=== PATIENT | female | born 1995 ===

== ENCOUNTER 2017-04-22 12:56 | Inpatient (IN) | payer OTHER, SELFPAY ==
[2017-04-22 13:23] LABS: INR-International Normal Ratio 1.2; PTT 20.1 SEC (22.9-36.1); Prothrombin Time 14.9 SEC (12.0-14.7)
[2017-04-22 13:24] LABS: Hemoglobin 3.8 g/dL (12.0-16.0); Mean Corpuscular HGB CONC 34.8 g/dL (32.0-36.0); Mean Corpuscular Hemoglobin 31.4 pg (27.0-31.0); Mean Corpuscular Volume 90.1 fl (81.0-99.0); Mean Platelet Volume 6.1 fL (7.4-10.4); Platelet Count 287 thou/uL (130-400); Red Blood Cell (RBC) Count 1.22 mill/uL (4.20-5.40); White Blood Cell (WBC) Count 18.3 thou/uL (4.8-10.8)
[2017-04-22 13:30] LABS: BHCG - Serum Negative (NEGATIVE); Pregs Control Background? CLEAR/WHITE (CLR/WHITE); Pregs Control Bar Appear? YES (CONTROL BAR)
[2017-04-22 13:40] LABS: ALT (SGPT) Less than 7 U/L (8-55); AST (SGOT) 11 U/L (5-34); Albumin 2.9 g/dL (3.5-5.0); Alkaline Phosphatase 34 U/L (40-150); Anion Gap 11 mmol/L (10-20); BUN (Urea Nitrogen) 23 mg/dL (7.0-18.7); Bilirubin, Total 0.5 mg/dL (0.2-1.2); CK (CPK) 16 U/L (29-168); Calc. Creatinine Clearance 0 mL/min (70-130); Calcium 7.9 mg/dL (7.8-10.44); Carbon Dioxide 24 mmol/L (22-29); Chloride 103 mmol/L (98-107); Estimated GFR-MDRD Greater than 90; Globulin 1.2 g/dL (2.4-3.5); Glucose 140 mg/dL (70-105); Lipase 38 U/L (8-78); Magnesium 1.4 mg/dL (1.6-2.6); Potassium 3.6 mmol/L (3.5-5.1); Protein, Total 4.1 g/dL (6.0-8.3); Sodium 134 mmol/L (136-145)
[2017-04-22 13:50] LABS: #Basophils 0.1 thou/uL (0.0-0.2); #Lymphocytes 2.4 thou/uL (1.20-3.40); #Monocytes 0.6 thou/uL (0.11-0.59); #Neutrophils 15.2 thou/uL (1.40-6.50); %Basophils 0.4 % (0.0-1.0); %Eosinophils 0.1 % (0.0-10.0); %Lymphocytes 13.2 % (21.0-51.0); %Monocytes 3.3 % (0.0-10.0); Anisocytosis SLIGHT = 6-15 cells (100X) (0-5/hpf); MDiff Complete? YES; PLT Morphology Comment Appears Adequate
[2017-04-22 14:11] LABS: Iron 15 ug/dL (50-170); Iron Binding Capacity, Total 229 mcg/dL (265-497)
[2017-04-22 14:48] LABS: Ferritin 3.08 ng/mL (10-291)
[2017-04-22 16:15] LABS: Bilirubin Negative (Negative); Blood, Urine Negative (Negative); Clarity CLEAR (Clear); Glucose, Urine (Dipstick) Negative (Negative); Leukocyte Negative (Negative); Nitrite Negative (Negative); Protein, Urine (Dipstick) Negative (Neg-Trace); Specific Gravity, Urine 1.011 (1.002-1.036); Urobilinogen 0.2 mg/dL (0.2-1.0); pH, Urine 6.5 (5.0-9.0)
[2017-04-22] MEDS ORDERED: Fentanyl 250 MCG/5 ML VIAL ONE (16:26)
[2017-04-22] MEDS ORDERED: Propofol 200 MG/20 ML VIAL ONE (16:33)
[2017-04-22] MEDS ORDERED: Lidocaine 1% PF 5 ML VIAL ONE (16:33)
[2017-04-22] MEDS ORDERED: Succinylcholine Chloride 20 MG/ML 10 ml SYRINGE FS ONE (16:33)
[2017-04-22] MEDS ORDERED: Ondansetron HCl/PF 4 MG/2 ML Vial ONE (18:03)
[2017-04-22] MEDS ORDERED: Promethazine HCl 25 MG/ML VIAL SLOW IVP PRN (18:03)
[2017-04-22] MEDS ORDERED: Promethazine HCl 25 MG/ML VIAL IM PRN (18:03)
[2017-04-22] MEDS ORDERED: Ondansetron HCl/PF 4 MG/2 ML Vial IVP PRN (18:03)
[2017-04-22 18:48] LABS: Hemoglobin 8.1 g/dL (12.0-16.0)
--- NOTE | 2017-04-22 18:52 | OP ---
DATE OF PROCEDURE: 04/22/2017 PROCEDURES PERFORMED: Esophagogastroduodenoscopy with balloon dilation of the pyloric stricture. OPERATIVE NOTE: Informed consent was obtained from the patient. She was sedated with general anesth esia. The therapeutic endoscope was advanced to the esophagus, which was normal. The GE junction wa s normal. The stomach had staining of old black blood, but the mucosa was normal. The pylorus was s trictured and there was too tight to pass the endoscope through. A 12 mm pyloric dilation balloon wa s passed through the stricture and the stricture was dilated up to 12 mm. This allowed passage of th e endoscope through the stricture. The bulb of the duodenum was normal. The second portion of the d uodenum was normal. Biopsies were taken from the duodenum to rule out celiac disease. There was glory e oozing from the dilation site. There was a shallow ulcer in the inferior part of the pylorus. Thi s measured around 10 mm. Biopsies were obtained from the stomach to rule out H. pylori. IMPRESSION: 1. Pyloric stenosis, too tight to pass the endoscope through. This was dilated to 12 mm with a pylo jade balloon dilator. This allowed passage of the scope through the pylorus. There was a 10 mm ulcer in the inferior portion of the pyloric channel without stigmata of recent bleeding. There was stain ing of old black blood in the stomach and the first part of the duodenum. 2. EGD was otherwise normal. 3. She likely has had gradual blood loss over a period of months. 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 RECOMMENDATIONS: 1. Transfuse. She has been given three units now. We will check a posttransfusion hemoglobin. 2. Proton pump inhibitor IV. This should be able to be changed to oral proton pump inhibitor tomorr ow. 3. Low residue diet. 4. Oral iron supplementation. If she fails to return to normal hemoglobin with this, then she might eventually require iron IV. 5. Repeat EGD in 2-4 weeks to reevaluate the ulcer and dilate the pyloric stricture further. 6. Await pathology results.
--- NOTE | 2017-04-22 18:53 | CON ---
DATE OF CONSULTATION: 04/22/2017 CHIEF COMPLAINT: Severe weakness. HISTORY OF PRESENT ILLNESS: Ms. Butler is a 22-year-old woman who has felt bad in general over the las t couple of months, but over the last week, has been acutely weak and on Thursday, she developed shortn ess of breath when trying to walk up flight of stairs. She went home and either passed out or fell a sleep. She then woke up and vomited on herself some black looking material. She just stayed in bed over the next couple of days until her friends ultimately went to check on her today and brought her into the emergency room for further care due to severe weakness and lightheadedness. She has had michael und 1 bowel movement per day, which has been dark at times, but she has not looked at it in detail. She has had some epigastric bloating and she vomited on Thursday as stated above. She has not seen any red blood in her stool or large volume black stools. She has had heavy menstrual periods. Her mens trual cycle will go on for a week or so at a time and has been heavy the first several days. She was diagnosed with a gastric ulcer when she was in high school. She required multiple upper endoscopies with balloon dilation of pyloric stricture. She was diagnosed with H. pylori at some point and lynda khan for that. She has not been on proton pump inhibitor for the last few years. She has not been ta shala NSAIDs other than yesterday she had a bad headache and took Excedrin for migraine. Other than t hat, she has only taken some Tylenol a few times over the last couple of months. PAST MEDICAL HISTORY: Pyloric ulcer, pyloric stenosis requiring dilation in the past, TMJ disorder, ADHD. PAST SURGICAL HISTORY: Tonsils and adenoids, multiple upper endoscopies with dilation and tubes plac ed for eardrums as a child. FAMILY HISTORY: Positive for breast cancer in her grandmother. SOCIAL HISTORY: She drinks some alcohol occasionally, socially on the weekends in the past, but real bernarda has not had anything over the last couple of months since she has been feeling so poorly. No smok ing, no drugs. 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 ALLERGIES: CECLOR and BACTRIM. REVIEW OF SYSTEMS: Negative x10 systems reviewed except as stated in history of present illness. PHYSICAL EXAMINATION: VITAL SIGNS: On presentation to the ER, blood pressure was 105/52 with a pulse of 110, and she is af ebrile. She has received 3 units of blood. Her pulse is now 103 with a blood pressure of 90/56 in p ostanesthesia unit. GENERAL: She is extremely pale. HEENT: Eyes have no scleral icterus. Oropharynx is clear, without lesions. LUNGS: Clear to auscultation bilaterally. HEART: Regular rate and rhythm. NECK: She has no cervical or supraclavicular lymphadenopathy. ABDOMEN: Soft, nontender, nondistended. Bowel sounds are present. EXTREMITIES: No lower extremity edema. LABORATORY DATA: White blood cell count 18.3, hemoglobin 3.8, platelets 287. INR 1.2, creatinine 0. 75, iron 15, TIBC 229, ferritin 3.08, bilirubin 0.5, AST 11, ALT 7, alkaline phosphatase 34, albumin 2.9, lipase 38. Serum test was negative. IMPRESSION: Severe iron deficiency anemia. She likely has had chronic blood loss from the GI tract and also with heavy menstrual loss as well. 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 Rectal exam now reveals only flecks of black stool. RECOMMENDATIONS: 1. Proton pump inhibitor drip. 2. EGD. 3. Transfusion.
[2017-04-22 19:04] LABS: Lactic Acid 1.5 mmol/L (0.5-2.2)
--- NOTE | 2017-04-22 19:15 | PDOC.FPRHP ---
- History of Present Illness Chief Complaint: Syncopal Episode History of Present Illness: 22 year old white female with a past medical history of pyloric stenosis, anxiety, depression, stomach ulcers, ADHD, and TMJ who presented to the ED after a syncopal episode. Today she was in the bathroom talking to her boyfriend and stopped talking. He checked on her and found her slumped against the wall. She woke up after 30 seconds and said she was fully awake and responsive by the time EMS arrived. She reports recent symptoms including fatigue, weakness, tachycardia with exertion, exertional dyspnea, headache, dark stools, and a single episode of vomiting she reports did look like coffee. Prior to Thursday she also had diarrhea and abdominal discomfort. ED Course: Seen by Dr. Souza. Transfused [address] Pino consulted by ED - Allergies/Adverse Reactions Allergies Allergy/AdvReac Type Severity Reaction Status Date / Time No Known Allergies Allergy Unverified 04/22/17 18:48 - Home Medications Medication Instructions Recorded Confirmed Type Citalopram [CeleXA] 20 mg PO DAILY 04/22/17 04/22/17 History Dextroamphetamine/Amphetamine 20 mg PO BID 04/22/17 04/22/17 History [Adderall] - History PMHx: PSHx: FHx: Social: - Review of Systems General: reports: fatigue. denies: fever/chills, weight/appetite/sleep changes , night sweats Eyes: denies: eye pain, vision changes ENT: denies: nasal congestion, rhinorrhea Respiratory: reports: shortness of breath. denies: cough, congestion Cardiovascular: reports: other (Exertional dyspnea). denies: chest pain Gastrointestinal: reports: nausea, vomiting, other (Dark stools). denies: diarrhea, constipation, abdominal pain, GI bleeding Genitourinary: denies: dysuria, polyuria Skin: denies: rashes, lesions Musculoskeletal: denies: pain, tenderness, stiffness, arthritis/arthralgias Neurological: reports: syncope. denies: numbness, seizure, weakness Psychological: denies: anxiety, depression - Vital signs BP: [] HR: [] RR: [] Tmax: [] Pox: []% on [] Wt: [] - Physical Exam Constitutional: NAD, awake, alert and oriented, well developed HEENT: normocephalic and atraumatic, conjunctiva clear, no scleral icterus, TM' s clear and intact, grossly normal hearing, MMM, oropharynx clear -HEENT: Oral mucosa pale Neck: supple, FROM, trachea midline, no LAD, no thyromegaly Chest: no-tender to palpation, no lesions Heart: normal S1/S2, no murmurs/rubs/gallops, pulses present, no edema ( Tachycardic. Regular rhythm) Lungs: CTAB, no respiratory distress, good air movement, no rales/rhonchi, no wheezing, no retractions Abdomen: soft, non-tender, bowel sounds present, no masses/distention Musculoskeletal: normal structure, normal tone, ROM grossly normal Neurological: no focal deficit, CN II-XII intact, normal sensation, DTRs 2+ Skin: no rash/lesions, good turgor, capillary refill <2 seconds, no jaundice -Skin: Skin pale Heme/Lymphatic: no unusual bruising or bleeding, no purpura, no petechia, no LAD Psychiatric: normal mood and affect, good judgment and insight, intact recent and remote memory FMR H&P: Results - Labs Result Diagrams: 04/22/17 18:33 04/22/17 13:10 Lab results: WBC 18.3 thou/uL (4.8-10.8) H 04/22/17 13:10 Hgb 8.1 g/dL (12.0-16.0) L 04/22/17 18:33 Hct 23.9 % (36.0-47.0) L 04/22/17 18:33 MCV 90.1 fl (81.0-99.0) 04/22/17 13:10 Plt Count 287 thou/uL (130-400) 04/22/17 13:10 Neutrophils % 83.0 % (42.0-75.0) H 04/22/17 13:10 Sodium 134 mmol/L (136-145) L 04/22/17 13:10 Potassium 3.6 mmol/L (3.5-5.1) 04/22/17 13:10 Chloride 103 mmol/L (98-107) 04/22/17 13:10 Carbon Dioxide 24 mmol/L (22-29) 04/22/17 13:10 BUN 23 mg/dL (7.0-18.7) H 04/22/17 13:10 Creatinine 0.75 mg/dL (0.6-1.1) 04/22/17 13:10 Glucose 140 mg/dL (70-105) H 04/22/17 13:10 Lactic Acid 1.5 mmol/L (0.5-2.2) 04/22/17 18:33 Calcium 7.9 mg/dL (7.8-10.44) 04/22/17 13:10 Total Bilirubin 0.5 mg/dL (0.2-1.2) 04/22/17 13:10 AST 11 U/L (5-34) 04/22/17 13:10 ALT Less than 7 U/L (8-55) L 04/22/17 13:10 Alkaline Phosphatase 34 U/L (40-150) L 04/22/17 13:10 Creatine Kinase 16 U/L (29-168) L 04/22/17 13:10 Serum Total Protein 4.1 g/dL (6.0-8.3) L 04/22/17 13:10 Albumin 2.9 g/dL (3.5-5.0) L 04/22/17 13:10 Lipase 38 U/L (8-78) 04/22/17 13:10 Urine Ketones 15 mg/dL (Negative) H 04/22/17 15:48 Urine Blood Negative (Negative) 04/22/17 15:48 Urine Nitrite Negative (Negative) 04/22/17 15:48 Ur Leukocyte Esterase Negative (Negative) 04/22/17 15:48 FMR H&P: A/P - Problem List (1) Acute blood loss anemia Current Visit: Yes Status: Acute Priority: High Code(s): D62 - ACUTE POSTHEMORRHAGIC ANEMIA Assessment and Plan: Admit to IMCU - Suspect upper GI bleed as source - FOBT positive - Dr. Pino in GI consulted plans for EGD. Appreciate his recs - Continue iv Protonix - Patient given 3 units PRBC. Will recheck CBC after endoscopy (2) Hypotension Current Visit: Yes Status: Acute Priority: High Qualifiers: Hypotension type: unspecified hypotension type Qualified Code(s): I95.9 - Hypotension, unspecified Assessment and Plan: 03/27 #1. Will give blood (3) Tachycardia Current Visit: Yes Status: Acute Code(s): R00.0 - TACHYCARDIA, UNSPECIFIED Assessment and Plan: 2/2 #1. Likely 2/2 blood transfusion (4) Anxiety Current Visit: Yes Status: Chronic Priority: Low Code(s): F41.9 - ANXIETY DISORDER, UNSPECIFIED Assessment and Plan: Hold home meds (5) Depression Current Visit: Yes Status: Chronic Priority: Low Code(s): F32.9 - MAJOR DEPRESSIVE DISORDER, SINGLE EPISODE, UNSPECIFIED Qualifiers: Depression Type: unspecified Qualified Code(s): F32.9 - Major depressive disorder, single episode, unspecified Assessment and Plan: Hold home meds. Has only taken Citalopram once FMR H&P: Upper Level - Plan Date/Time: 04/22/171907 I, [], have evaluated this patient and agree with findings/plan as outlined by tax services intern resident. Pertinent changes/additions are listed here.
[2017-04-22] MEDS: Pantoprazole 40 MG VIAL IVP SCH (21:28)
[2017-04-22 22:44] VITALS: BMI 22.3
[2017-04-22] MEDS ORDERED: Acetaminophen 500 MG TAB PO SCH (23:30)
[2017-04-23 05:48] LABS: #Eosinphils 0.1 thou/uL (0.0-0.7); #Lymphocytes 3.1 thou/uL (1.20-3.40); #Monocytes 0.9 thou/uL (0.11-0.59); #Neutrophils 7.7 thou/uL (1.40-6.50); %Basophils 0.4 % (0.0-1.0); %Eosinophils 0.6 % (0.0-10.0); %Lymphocytes 26.6 % (21.0-51.0); %Monocytes 7.2 % (0.0-10.0); %Neutrophils 65.3 % (42.0-75.0); Hemoglobin 7.2 g/dL (12.0-16.0); Mean Corpuscular HGB CONC 33.8 g/dL (32.0-36.0); Mean Corpuscular Hemoglobin 30.1 pg (27.0-31.0); Mean Platelet Volume 6.6 fL (7.4-10.4); Platelet Count 198 thou/uL (130-400); RBC Distribution Width 13.3 % (11.5-14.5); Red Blood Cell (RBC) Count 2.39 mill/uL (4.20-5.40); White Blood Cell (WBC) Count 11.8 thou/uL (4.8-10.8)
[2017-04-23 06:15] LABS: Anion Gap 7 mmol/L (10-20); BUN (Urea Nitrogen) 14 mg/dL (7.0-18.7); Calc. Creatinine Clearance 115 mL/min (70-130); Carbon Dioxide 23 mmol/L (22-29); Chloride 110 mmol/L (98-107); Estimated GFR-MDRD Greater than 90; Glucose 90 mg/dL (70-105); Potassium 3.6 mmol/L (3.5-5.1); Sodium 136 mmol/L (136-145)
[2017-04-23] MEDS ORDERED: Magnesium 2 GM/NS 0.9% 100 ML 2 GM in Premix Bag 1 BAG IVPB SCH (06:45)
--- NOTE | 2017-04-23 06:48 | PDOC.FM ---
- Subjective Subjective: Pt seen at bedside in NAD. JAX overnight, notes she feels better. Still endorses orthostatic dizziness. Tolerating PO well. Denies CP, SOB, NVD, abd pain. - Objective MAR Reviewed: Yes Vital Signs & Weight: Vital Signs (12 hours) Temp Pulse Resp BP Pulse Ox 04/23/17 04:37 98.9 F 106 H 16 102/54 L 98 04/22/17 20:00 97.6 F 99 16 100 04/22/17 19:20 97.6 F 99 16 109/68 100 Weight Weight 59.012 kg Result Diagrams: 04/23/17 05:19 04/23/17 05:19 <Rahul Gallegos - Last Filed: 04/23/17 15:03> - Objective Vital Signs & Weight: Vital Signs (12 hours) Temp Pulse Resp BP Pulse Ox 04/23/17 04:37 98.9 F 106 H 16 102/54 L 98 Weight Weight 57.969 kg I&O: 04/22/17 04/23/17 04/24/17 06:59 06:59 06:59 Intake Total 500 Output Total 2049 Balance -1550 Result Diagrams: 04/23/17 05:19 04/23/17 05:19 <Alize Vivas - Last Filed: 04/23/17 15:14> Phys Exam - Physical Examination Constitutional: NAD HEENT: PERRLA oral pallor Neck: no nodes Respiratory: no wheezing, clear to auscultation bilateral Cardiovascular: RRR, no significant murmur Gastrointestinal: soft, non-tender Musculoskeletal: pulses present Neurological: moves all 4 limbs Psychiatric: normal affect, A&O x 3 <Rahul Gallegos - Last Filed: 04/23/17 15:03> Dx/Plan (1) Acute blood loss anemia Code(s): D62 - ACUTE POSTHEMORRHAGIC ANEMIA Status: Acute Plan: -pt presented for symptomatic anemia and found to have Hgb 3.8 -pt has hx of melena and menorrhagia and likely a chronic blood loss -iron studies reveal iron of 15 and ferritin of 3, would likely benefit from iron transfusion -pt has received 3 u pRBC thus far, will continue to monitor closely and consider additional transfusion -pt cross matched for 6 units -protonix BID (2) Pyloric stenosis in adult Code(s): K31.1 - ADULT HYPERTROPHIC PYLORIC STENOSIS Status: Acute Plan: -GI on board, recs greatly appreciated -EGD on 04/22 revealed severe pyloric stenosis, partially dilated -plans for repeat EGD in 2-4 weeks for further dilation (3) Tachycardia Code(s): R00.0 - TACHYCARDIA, UNSPECIFIED Status: Acute Plan: -likely secondary to anemia and anxiety -has improved with fluid and intravascular repletion (4) Anxiety Code(s): F41.9 - ANXIETY DISORDER, UNSPECIFIED Status: Chronic - Plan Plan: dispo: Pt stable and improving. Continue to monitor closely. Repeat H/H at 1600. GI recs greatly appreciated. <Rahul Gallegos - Last Filed: 04/23/17 15:03> Attending Addendum - Attending Addendum Date/Time: 04/23/17914 I personally evaluated the patient and discussed the management with Dr. Gallegos I agree with the History, Examination, Assessment and Plan documented above with any addition or exceptions noted below. Severe iron deficiency anemia secondary to upper GI bleed from duodenal ulcer and menorrhagia- s/p 3UPRBC. Will give iron infusion as patient and mother prefer this to oral. Serial H/H. Her symptoms of dizziness and shortness of breath are much improved this am. <Alize Vivas - Last Filed: 04/23/17 15:14>
[2017-04-23] MEDS ORDERED: Acetaminophen 500 MG TAB PO SCH (08:30)
[2017-04-23] MEDS ORDERED: FLU VACC QS2017-18 36 mo. & older 0.5 ML SYRINGE IM ONE (09:00)
[2017-04-23] MEDS ORDERED: Acetaminophen 1,000 MG in Premix Bag 1 BAG IVPB SCH (11:00)
[2017-04-23] MEDS: Pantoprazole 40 MG VIAL IVP SCH ×2 (11:22→21:53)
[2017-04-23] MEDS: Sodium Ferric Gluconate 250 MG, Admixture Fee 1 EACH in Sodium Chloride 0.9% 250 ML 250 ML IVPB SCH ×2 (12:21→21:53)
[2017-04-23 16:37] LABS: Hemoglobin 8.1 g/dL (12.0-16.0)
[2017-04-23 17:58] LABS: Base Excess-Venous -5.3 mmol/L (-30.0-30.0); Bicarbonate (HCO3v) 18.8 mmol/L (1.0-85.0); CO2 Tension (PvCO2) 27.7 mmHg (41.0-51.0); Lactate 2.51 mmol/L (0.50-2.20); O2 Tension (PvO2) 70.9 mmHg (35.0-45.0); Potassium 3.6 mmol/L (3.4-4.7); T. Carbon Dioxide 19.6 mmol/L (1.0-85.0); pH (Venous) 7.439 (7.35-7.45)
--- NOTE | 2017-04-23 19:12 | PRG ---
DATE OF SERVICE: 04/23/2017 SUBJECTIVE: Ms. Butler has had no bowel movement today. No overt bleeding. No abdominal pain or naus ea. She is tolerating the full liquids well and wants to advance her diet. PHYSICAL EXAMINATION: VITAL SIGNS: Temperature 98.9, pulse 106, blood pressure 102/54. GENERAL: She is in no acute distress. She is still pale. Awake and alert. LUNGS: Clear to auscultation bilaterally. HEART: Regular rate and rhythm, mildly tachycardic. ABDOMEN: Soft, nontender, nondistended. Bowel sounds are present. EXTREMITIES: No lower extremity edema. LABORATORY DATA: White blood cell count 11.8, hemoglobin 7.2, platelets 198, creatinine 0.71. IMPRESSION: 1. Acute on chronic gastrointestinal bleed related to pyloric channel ulcer. She has received 3 uni ts transfusion and is receiving IV iron today. Her hemoglobin improved from 3.8 to 7.2 with 3 units transfusion. She is still mildly symptomatic and her followup hemoglobin this afternoon remains clos e to 7 and we have given her another unit of blood. 2. Pyloric stenosis, status post dilation with balloon. RECOMMENDATIONS: 1. She has a repeat hemoglobin ordered for this afternoon. If it remains in the 7 range, then recom mendation is to transfuse a unit since she is still symptomatic. 2. IV iron. 3. Repeat EGD in 2-4 weeks. 4. She can likely discharged home tomorrow if she has no further overt bleeding and her hemoglobin r emains stable or responds appropriately to transfusion. 5. We will advance to a regular diet.
[2017-04-23 21:56] LABS: Lactic Acid 2.6 mmol/L (0.5-2.2)
--- NOTE | 2017-04-24 06:53 | PDOC.FM ---
- Subjective Subjective: Pt seen at bedside in NAD. Mother in room. JAX overnight. Pt notes she feels better. Pt notes some lightheadedness with quick movements. Pt denies CP, SOB, abd pain, NVD, bleeding. - Objective MAR Reviewed: Yes Vital Signs & Weight: Vital Signs (12 hours) Temp Pulse Resp BP Pulse Ox 04/24/17 03:57 98.3 F 80 18 100/53 L 97 04/23/17 20:00 98.6 F 93 18 106/60 99 Weight Weight 57.969 kg I&O: 04/22/17 04/23/17 04/24/17 06:59 06:59 06:59 Intake Total 500 1070 Output Total 2049 350 Balance -1550 720 Result Diagrams: 04/24/17 07:11 04/23/17 05:19 <Rahul Gallegos - Last Filed: 04/24/17 11:26> - Objective Vital Signs & Weight: Vital Signs (12 hours) Temp Pulse Resp BP Pulse Ox 04/24/17 10:30 98.2 F 18 98 04/24/17 10:15 98.1 F 18 100 04/24/17 08:00 98.1 F 92 18 99 04/24/17 07:25 98.6 F 92 18 105/56 L 99 04/24/17 03:57 98.3 F 80 18 100/53 L 97 Weight Weight 57.969 kg Most Recent Monitor Data Heart Rate from ECG 100 NIBP 94/54 I&O: 04/23/17 04/24/17 04/25/17 06:59 06:59 06:59 Intake Total 500 1820 0 Output Total 2049 350 Balance -1550 1470 0 Result Diagrams: 04/24/17 07:11 04/23/17 05:19 <Alize Vivas - Last Filed: 04/24/17 15:05> Phys Exam - Physical Examination Constitutional: NAD HEENT: moist MMs Respiratory: no wheezing, clear to auscultation bilateral Cardiovascular: RRR, no significant murmur Gastrointestinal: soft, non-tender Musculoskeletal: no edema Neurological: moves all 4 limbs Psychiatric: normal affect, A&O x 3 Skin: cap refill <2 seconds <Rahul Gallegos - Last Filed: 04/24/17 11:26> Dx/Plan (1) Acute blood loss anemia Code(s): D62 - ACUTE POSTHEMORRHAGIC ANEMIA Status: Acute Plan: -pt presented for symptomatic anemia and found to have Hgb 3.8 -pt has hx of melena and menorrhagia and likely a chronic blood loss -iron studies reveal iron of 15 and ferritin of 3, would likely benefit from iron transfusion -pt has received 3 u pRBC thus far, will continue to monitor closely and consider additional transfusion -pt cross matched for 6 units -protonix BID -Hgb 7.2 this AM, will transfuse 1 additional unit and recheck H/H (2) Pyloric stenosis in adult Code(s): K31.1 - ADULT HYPERTROPHIC PYLORIC STENOSIS Status: Acute Plan: -GI on board, recs greatly appreciated -EGD on 04/22 revealed severe pyloric stenosis, partially dilated -plans for repeat EGD in 2-4 weeks for further dilation (3) Tachycardia Code(s): R00.0 - TACHYCARDIA, UNSPECIFIED Status: Acute Plan: -likely secondary to anemia and anxiety -has improved with fluid and intravascular repletion (4) Anxiety Code(s): F41.9 - ANXIETY DISORDER, UNSPECIFIED Status: Chronic - Plan Plan: Disposition: Pt stable. GI recs greatly appreciated. Protonix transitioned to PO. Will transfuse 1 additional unit this AM and if H/H stable, will likely discharge this afternoon. Continue to monitor. <Rahul Gallegos - Last Filed: 04/24/17 11:26> Attending Addendum - Attending Addendum Date/Time: 04/24/17 0840 I personally evaluated the patient and discussed the management with Dr. Gallegos I agree with the History, Examination, Assessment and Plan documented above with any addition or exceptions noted below. Acute on chronic iron deficiency anemia secondary to blood loss- patient mildly symptomatic. Will transfuse one more unit and recheck h/h. If above 8 then stable for d/c with close outpatient follow-up. No recurrent bleeding. Pyloric stenosis- appreciate GI recs <Alize Vivas - Last Filed: 04/24/17 15:05>
[2017-04-24 07:44] LABS: Hemoglobin 7.5 g/dL (12.0-16.0)
[2017-04-24] MEDS: Pantoprazole 40 MG VIAL IVP SCH (09:43)
[2017-04-24 17:03] VITALS: BP 111/63; TEMP 98.7
[2017-04-24 17:10] LABS: Hemoglobin 10.2 g/dL (12.0-16.0)
--- NOTE | 2017-04-24 18:07 | PRG ---
DATE OF SERVICE: 04/24/2017 SUBJECTIVE: Ms. Batista is without complaints today. She feels much better. She is not dizzy on sta nding. She does not feel weak. She is eating well without stomach pain. She has had no melena, hem atochezia or hematemesis. MEDICATIONS: Protonix. OBJECTIVE: VITAL SIGNS: Temperature 97, pulse 18, blood pressure 112/56, 93/55, 105/56, respirations 18 and pul se 92. GENERAL: She is resting comfortably in bed. She is mildly pale. HEENT: Conjunctivae and sclerae are clear. LABORATORY STUDIES: Hemoglobin was 8.1 on 04/22, 7.2 yesterday, then 8.1 yesterday afternoon and 7.5 this morning. She received a unit of blood today and 3 units of blood on 04/22. ASSESSMENT: 1. Severe anemia with iron deficiency, but no microcytosis. On admission, she reported of some emes is, possibly coffee grounds, but no history of massive gastrointestinal bleeding on presentation. Sh layla has a history of heavy menstrual cycles with a remote history of ulcers and pyloric stenosis. No o ther report showed NSAID disease. This endoscopy showed small ulcer, chronic and pyloric stenosis wh ich was felt to be more of an issue with chronic gastrointestinal blood loss. She did receive iron i nfusion, which I think was a good idea. She is receiving 1 more unit of blood today. She was sympto matic yesterday. 2. Helicobacter pylori biopsy is negative. 3. Pyloric stenosis related to previous scarring, which was attributed to nonsteroidal anti-inflamma tory drugs with ulcers when she was a teenager. 4. Tachycardia, resolved. RECOMMENDATION: I think she can go home if her hemoglobin is stable with b.i.d. omeprazole. She pelaez s not have prescription drug coverage, so I think this will be the cheapest 40 mg twice a day. She g ot a number and we will see her back in the office in 1-2 weeks to recheck her blood count. She will need a follow up EGD in 4-6 weeks. If she is not having adequate improvement in hemoglobin, it woul d be reasonable to consider colonoscopy at that time as well.
--- NOTE | 2017-04-25 10:51 | DIS-2 ---
DATE OF ADMISSION: 04/22/2017 DATE OF DISCHARGE: 04/24/2017 RESIDENT: Rahul Gallegos M.D. ADMITTING ATTENDING: Edgar Aguiar M.D. DISCHARGE ATTENDING: Alize Vivas M.D. CONSULTS: Gastroenterology, Dr. Sravan Pino and Dr. Elijah Pacheco. PROCEDURES: 1. EGD performed on 04/22/2017 showed pyloric stenosis dilated with a balloon dilator, 10-mm ulcer o n the inferior portion of the pyloric channel without stigmata of recent bleeding; however, old blood in the stomach and duodenum. 2. Antral stomach biopsy showed no H. pylori organisms, negative metaplasia and chronic inactive gas tritis. 3. Duodenal biopsy showed no evidence of celiac sprue. PRIMARY DIAGNOSES: 1. Syncopal episode secondary to chronic upper gastrointestinal bleed due to pyloric ulceration. 2. Iron deficiency anemia secondary to above. DISCHARGE MEDICATIONS: 1. Omeprazole 40 mg p.o. b.i.d. 2. Ferrous sulfate 325 mg p.o. daily. 3. Citalopram 20 mg daily. 4. Adderall 20 mg p.o. b.i.d. HISTORY OF PRESENT ILLNESS AND HOSPITAL COURSE: The patient is a very pleasant 22-year-old female, who initially presented due to a syncopal episode. Upon initial workup, the patient was fou nd to have hemoglobin of 3.8 and required multiple blood transfusions, totaling of 4 units of packed red blood cells throughout her hospital stay. The patient had an urgent EGD performed as described sandra allen and it was thought that her symptomatic anemia was caused by a chronic bleeding ulcer and possib ly menorrhagia. The patient responded extremely well to her blood transfusions and she also received an IV iron transfusion while hospitalized. Of note, the patient's iron was 15 with a ferritin of 3. Prior to discharge, the patient's hemoglobin was 10.2. After the stabilization of the patient's he moglobin, it was deemed that she was stable for discharge with close outpatient followup. The patien t's hospital course was otherwise uncomplicated. DISPOSITION: Stable. DISCHARGE INSTRUCTIONS: 1. Location: Home. 2. Diet: Regular diet. 3. Activity: As tolerated. 4. Followup: The patient was given information for the [facility] to schedule an appointment and establish with a PCP. The patient was also instructed to follow up with Gastroen terology and was given the clinic information of Dr. Pino and Dr. Pacheco in order for a repeat EGD i n the next month.
--- NOTE | 2017-04-25 13:25 | EKG ---
Test Reason : Blood Pressure : / mmHG Vent. Rate : 103 BPM Atrial Rate : 103 BPM P-R Int : 126 ms QRS Dur : 068 ms QT Int : 374 ms P-R-T Axes : 074 020 036 degrees QTc Int : 489 ms Sinus tachycardia Nonspecific ST abnormality Abnormal ECG Confirmed by DESIREE PINO, ALEXSANDRA ([id number]), research editor ZORAN PALMER ([id number]) on 04/25/2017 1:25:11 PM Referred By: DESIREE Confirmed By:ALEXSANDRA RAMÍREZ MD
== END 2017-04-24 19:20 | disposition home or self-care (01) | DRG 378 ==
LOC: ERS 12:56 → 2NO 18:45
PROVIDERS: ADMIT Student in an Organized Health Care Education/Training Program; ATTEND Student in an Organized Health Care Education/Training Program
PROC: 0D778ZZ Dilation of Stomach, Pylorus, Via Natural or Artificial Opening Endoscopic (ICD-10-PCS; principal; 2017-04-22)
PROC: 0DB98ZX Excision of Duodenum, Via Natural or Artificial Opening Endoscopic, Diagnostic (ICD-10-PCS; 2017-04-22)
PROC: 0DB68ZX Excision of Stomach, Via Natural or Artificial Opening Endoscopic, Diagnostic (ICD-10-PCS; 2017-04-22)
PROC: 30233N1 Transfusion of Nonautologous Red Blood Cells into Peripheral Vein, Percutaneous Approach (ICD-10-PCS; 2017-04-22)
DX: K25.4 Chronic or unspecified gastric ulcer with hemorrhage (principal); K31.1 Adult hypertrophic pyloric stenosis; I95.9 Hypotension, unspecified; F41.9 Anxiety disorder, unspecified; F32.9 Major depressive disorder, single episode, unspecified; D50.0 Iron deficiency anemia secondary to blood loss (chronic); N92.0 Excessive and frequent menstruation with regular cycle; Z88.1 Allergy status to other antibiotic agents; Z88.2 Allergy status to sulfonamides
CPT/HCPCS: 36415; 36416; 36430; 80048; 80053; 81003; 82274; 82330; 82550; 82728; 82803; 82941; 83540; 83550; 83605; 83690; 83735; 84703; 85014; 85018; 85025; 85060; 85610; 86850; 86900; 86901; 87040; 87086; 88305; 88312; 93005; 94760; A4216; C1726; C9113; J0131; J2001; J2405; J2704; J2916; J3010; J3475; J7050; P9016

== ENCOUNTER 2017-04-27 11:56 | Inpatient (IN) | payer OTHER ==
[2017-04-27 12:24] LABS: #Basophils 0.1 thou/uL (0.0-0.2); #Eosinphils 0.2 thou/uL (0.0-0.7); #Lymphocytes 2.5 thou/uL (1.20-3.40); #Neutrophils 8.7 thou/uL (1.40-6.50); %Basophils 0.6 % (0.0-1.0); %Eosinophils 1.4 % (0.0-10.0); %Lymphocytes 19.9 % (21.0-51.0); %Monocytes 7.9 % (0.0-10.0); %Neutrophils 70.3 % (42.0-75.0); Mean Corpuscular HGB CONC 33.2 g/dL (32.0-36.0); Mean Corpuscular Hemoglobin 31.3 pg (27.0-31.0); Mean Corpuscular Volume 94.2 fl (81.0-99.0); Platelet Count 456 thou/uL (130-400); RBC Distribution Width 15.6 % (11.5-14.5); Red Blood Cell (RBC) Count 3.52 mill/uL (4.20-5.40); White Blood Cell (WBC) Count 12.4 thou/uL (4.8-10.8)
[2017-04-27 12:32] LABS: PTT 31.5 SEC (22.9-36.1); Prothrombin Time 12.9 SEC (12.0-14.7)
[2017-04-27 12:52] LABS: ALT (SGPT) 11 U/L (8-55); AST (SGOT) 17 U/L (5-34); Albumin 4.1 g/dL (3.5-5.0); Alkaline Phosphatase 72 U/L (40-150); Anion Gap 12 mmol/L (10-20); BUN (Urea Nitrogen) 7 mg/dL (7.0-18.7); Bilirubin, Total 0.9 mg/dL (0.2-1.2); Calc. Creatinine Clearance 0 mL/min (70-130); Calcium 9.4 mg/dL (7.8-10.44); Carbon Dioxide 24 mmol/L (22-29); Chloride 102 mmol/L (98-107); Estimated GFR-MDRD Greater than 90; Globulin 2.5 g/dL (2.4-3.5); Glucose 90 mg/dL (70-105); Potassium 3.6 mmol/L (3.5-5.1); Protein, Total 6.6 g/dL (6.0-8.3); Sodium 134 mmol/L (136-145)
[2017-04-27] MEDS ORDERED: Morphine 2 MG/ML SYRINGE ONE ×2 (13:21→14:01)
--- NOTE | 2017-04-27 15:27 | ULT ---
LEFT UPPER EXTREMITY DOPPLER VEIN ULTRASOUND: TECHNIQUE: Cr scale Doppler flow imaging with spectral analysis performed. CLINICAL HISTORY: Left arm pain, edema. FINDINGS: There is evidence of thrombus within the cephalic vein of the arm, cephalad to the level of the elbow . Otherwise, there is no DVT identified within the imaged left upper extremity. IMPRESSION: 1. Superficial vein thrombus. This involves the cephalic vein of the left arm. 2. There is soft tissue edema. Correlate clinically. POS: KAMRAN
--- NOTE | 2017-04-27 15:43 | PDOC.FPRHP ---
- History of Present Illness Chief Complaint: cellulitus History of Present Illness: This stable 22 yo F who was recently admitted for syncope 2/2 to anemia caused by gastric ulcers presents for evaluation of cellulitus at a peripheral IV site. Patient complains of redness and decreased ROM over the L elbow for the last 2 days. She reports some mild burning, also soreness associated with movement. She denies fevers, chills, nausea, vomiting, syncope, or sweats. She tried tylenol at home which did help relieve the pain. ED Course: Doppler US of REGGIE Joseph, andrew started 1L NS blood cultures taken - Allergies/Adverse Reactions Allergies Allergy/AdvReac Type Severity Reaction Status Date / Time cefaclor [From Ceclor] Allergy Mild Rash Verified 04/22/17 22:40 sulfamethoxazole Allergy Mild Rash Verified 04/22/17 22:40 [From Bactrim] trimethoprim [From Bactrim] Allergy Mild Rash Verified 04/22/17 22:40 - Home Medications Medication Instructions Recorded Confirmed Type Citalopram [CeleXA] 20 mg PO DAILY 04/22/17 04/22/17 History Dextroamphetamine/Amphetamine 20 mg PO BID 04/22/17 04/22/17 History [Adderall] Ferrous Sulfate 325 mg PO DAILY #30 tablet 04/24/17 Rx Omeprazole 40 mg PO BID #150 capsule. 04/24/17 Rx Pantoprazole [Protonix] 40 mg PO BID #60 tab 04/24/17 Rx - History PMHx: Pyloric Stenosis, anxiety, depression, ulcers, ADHD, TMJ, syncope, pyloric ulceration PSHx: EGD FHx: Social: No tobacco, alcohol, drugs - Review of Systems General: denies: fever/chills, night sweats, fatigue Eyes: denies: vision changes ENT: denies: nasal congestion, rhinorrhea Respiratory: denies: cough, congestion, shortness of breath Cardiovascular: denies: chest pain, palpitation, edema Gastrointestinal: denies: nausea, vomiting, diarrhea Genitourinary: denies: dysuria Skin: reports: other (see hpi) Musculoskeletal: denies: pain, tenderness Neurological: denies: numbness, syncope - Vital signs BP: [103/75] HR: [119] RR: [16] Tmax: [98.6] Pox: [100]% on [RA] Wt: [54.4] - Physical Exam Constitutional: NAD HEENT: normocephalic and atraumatic, PERRLA, MMM Neck: supple, FROM Heart: RRR, normal S1/S2, pulses present Lungs: CTAB, no respiratory distress, good air movement Abdomen: soft, non-tender, bowel sounds present Musculoskeletal: normal structure, other (decreased ROM) Neurological: no focal deficit, CN II-XII intact Skin: no rash/lesions, capillary refill <2 seconds FMR H&P: Results - Labs Result Diagrams: 04/27/17 12:10 04/27/17 12:10 Lab results: WBC 12.4 thou/uL (4.8-10.8) H 04/27/17 12:10 Hgb 11.0 g/dL (12.0-16.0) L 04/27/17 12:10 Hct 33.1 % (36.0-47.0) L 04/27/17 12:10 MCV 94.2 fl (81.0-99.0) 04/27/17 12:10 Plt Count 456 thou/uL (130-400) H 04/27/17 12:10 Neutrophils % 70.3 % (42.0-75.0) 04/27/17 12:10 Sodium 134 mmol/L (136-145) L 04/27/17 12:10 Potassium 3.6 mmol/L (3.5-5.1) 04/27/17 12:10 Chloride 102 mmol/L (98-107) 04/27/17 12:10 Carbon Dioxide 24 mmol/L (22-29) 04/27/17 12:10 BUN 7 mg/dL (7.0-18.7) 04/27/17 12:10 Creatinine 0.71 mg/dL (0.6-1.1) 04/27/17 12:10 Glucose 90 mg/dL (70-105) 04/27/17 12:10 Lactic Acid 0.6 mmol/L (0.5-2.2) 04/27/17 12:05 Calcium 9.4 mg/dL (7.8-10.44) 04/27/17 12:10 Total Bilirubin 0.9 mg/dL (0.2-1.2) 04/27/17 12:10 AST 17 U/L (5-34) 04/27/17 12:10 ALT 11 U/L (8-55) 04/27/17 12:10 Alkaline Phosphatase 72 U/L (40-150) 04/27/17 12:10 Serum Total Protein 6.6 g/dL (6.0-8.3) 04/27/17 12:10 Albumin 4.1 g/dL (3.5-5.0) 04/27/17 12:10 FMR H&P: A/P - Problem List (1) Cellulitis of skin Current Visit: Yes Status: Acute Code(s): L03.90 - CELLULITIS, UNSPECIFIED (2) Tachycardia Current Visit: No Status: Acute Code(s): R00.0 - TACHYCARDIA, UNSPECIFIED (3) Anxiety Current Visit: No Status: Chronic Priority: Low Code(s): F41.9 - ANXIETY DISORDER, UNSPECIFIED (4) Depression Current Visit: No Status: Chronic Priority: Low Code(s): F32.9 - MAJOR DEPRESSIVE DISORDER, SINGLE EPISODE, UNSPECIFIED Qualifiers: Depression Type: unspecified Qualified Code(s): F32.9 - Major depressive disorder, single episode, unspecified - Plan This stable 22 yo F comes in for evaluation of LUE cellulitus. She was discharged 1 week ago for syncopal episode related to gastric ulcer. # Sepsis 2/2 Cellulitus - likely secondary to peripheral IV at last admission - Vanc 1g q8hr - Clindamycin - blood cultures - Doppler US to r/o dvt in LUE - Developed rash after starting vancomycin, discussed with pharmacy, decreased rate by half, monitor # Tachycardia - received 1L NS bolus - Abx started - Continue IV fluids # Anxiety/Depression - home meds # ADHD - home meds # Code - full # PPx - SCDs, no pharmacologic 2/2 to recen GI bleed FMR H&P: Upper Level - Pertinent history 22 year old white female presents with left arm pain and swelling since Thursday. Associated with erythema and tenderness. She was recently hospitalized for an acute GI bleed 2/2 to a bleeding pyloric ulcer with associated pyloric stenosis. She reports she has only taken OTC meds for pain. She denies fever, chills, chest pain, shortness of breath, abdominal pain, nausea, vomiting, diarrhea, melena, and further hematochezia. She was seen in the ED by Dr. Martino who started her on vancomycin and clindamycin and got a venous ultrasound. - Pertinent findings Exam General: Patient is awake, alert, oriented x4. Nontoxic appearing. Does appear to be in pain HEENT: Normocephalic, atraumatic, PERRLA, EOMI, mucous membranes moist, trachea midline Cardio: Slightly tachycardic. Regular rhythm. No murmurs, rubs, or gallops auscultated. Resp: Lungs CTAB. No wheezing, rales, or rhonchi Abdomen: Soft, NT, ND, bowel sounds positive in all 4 quadrants Extremities: Left upper extremity erythematous with palpable cord just superior to left antecubital fossa. Tissue is slightly boggy and tender to palpation. Skin: Erythema of left antecubital fossa Neuro: No focal deficits Psych: Mood and affect appropriate. - Plan Date/Time: 04/27/17 1540 I, Eduin East DO, have evaluated this patient and agree with findings/plan as outlined by journalism intern resident. Pertinent changes/additions are listed here. 22 year old white female p/w: 1) Sepsis 2/2 to cellulitis of left upper extremity: Admit to medical. Check lactate. Venous US pending to help rule out superficial thrombophelibitis. Tylenol prn pain. Blood culture pending 2) Pyloric ulcer with recent GI bleed: Hemoglobin improved from last admission. Continue home meds 3) ADHD: Home meds 4) Depression/anxiety: Home meds Attending Addendum - Attending Addendum Date/Time: 04/27/17 [id number] I personally evaluated the patient and discussed the management with Dr. Monroe on 04/27/17. I agree with the History, Examination, Assessment and Plan documented above with any addition or exceptions noted below. Patient with cellulitis of L antecubital fossa vs superficial thrombophlebitis. Is septic. Abx started, US pending.
[2017-04-27] MEDS ORDERED: Acetaminophen 325 MG TAB PO PRN (17:03)
[2017-04-27] MEDS ORDERED: Ondansetron ODT 4 MG TAB SL PRN (17:03)
[2017-04-27] MEDS ORDERED: HYDROcodone/Acetaminophen 5/325 mg Tablet PO PRN ×2 (17:03)
[2017-04-27] MEDS ORDERED: Sodium Chloride 0.9% 1,000 ML IV SCH (17:03)
[2017-04-27] MEDS ORDERED: Ondansetron HCl/PF 4 MG/2 ML Vial IVP PRN ×2 (17:03→17:06)
[2017-04-27 17:39] VITALS: BMI 22.3
[2017-04-27] MEDS: Sodium Chloride 0.9% 1,000 ML IV SCH (18:19)
[2017-04-27] MEDS: Clindamycin 150 MG CAP PO SCH ×2 (18:23→23:19)
[2017-04-27] MEDS ORDERED: AMPHETAMINE PO SCH (21:00)
[2017-04-27] MEDS ORDERED: DEXTROAMPHETAMINE PO SCH (21:00)
[2017-04-27] MEDS: Vancomycin HCl 1 GM in Premix Bag 1 BAG IVPB SCH (21:33)
[2017-04-27] MEDS ORDERED: Clindamycin 150 MG CAP PO SCH (22:00)
[2017-04-28] MEDS ORDERED: Vancomycin HCl 1 GM in Premix Bag 1 BAG IVPB SCH (02:00)
[2017-04-28] MEDS: Vancomycin HCl 1 GM in Premix Bag 1 BAG IVPB SCH (06:18)
[2017-04-28] MEDS: Sodium Chloride 0.9% 1,000 ML IV SCH (06:18)
[2017-04-28] MEDS: Clindamycin 150 MG CAP PO SCH ×4 (06:19→22:06)
--- NOTE | 2017-04-28 06:58 | PDOC.FM ---
- Subjective Subjective: Pt seen at bedside in NAD. JAX overnight. Notes her left arm is improved but still has pain and swelling but redness has resolved. Pt denies AMEZQUITA, CP, SOB, abd pain, NVD. Tolerating PO well. - Objective MAR Reviewed: Yes Vital Signs & Weight: Vital Signs (12 hours) Temp Pulse Resp BP Pulse Ox 04/28/17 00:00 98.4 F 101 H 18 104/64 99 04/27/17 20:00 98.1 F 116 H 20 107/69 100 Weight Weight 58.967 kg Result Diagrams: 04/27/17 12:10 04/27/17 12:10 <Rahul Gallegos - Last Filed: 04/28/17 10:37> - Objective Vital Signs & Weight: Vital Signs (12 hours) Temp Pulse Resp BP Pulse Ox 04/28/17 08:00 98.0 F 80 16 90/52 L 100 04/28/17 00:00 98.4 F 101 H 18 104/64 99 Weight Weight 58.967 kg Result Diagrams: 04/27/17 12:10 04/27/17 12:10 <Andrei Abbasi - Last Filed: 04/28/17 11:25> Phys Exam - Physical Examination Constitutional: NAD HEENT: PERRLA, moist MMs Respiratory: no wheezing, clear to auscultation bilateral Cardiovascular: RRR, no significant murmur Gastrointestinal: soft, non-tender, positive bowel sounds Musculoskeletal: pulses present Neurological: moves all 4 limbs limited extension of left arm Psychiatric: A&O x 3 Deviation from normal: anxious affect Skin: no rash, cap refill <2 seconds Deviation from normal: mild nonpitting edema of left lower arm and antecubital fossa, no erythema <Rahul Gallegos - Last Filed: 04/28/17 10:37> Dx/Plan (1) Superficial thrombophlebitis Code(s): I80.9 - PHLEBITIS AND THROMBOPHLEBITIS OF UNSPECIFIED SITE Status: Acute QualifierTitle: Superficial thrombophlebitis-Involved body area: upper extremity Laterality: left Qualified Code(s): I80.8 - Phlebitis and thrombophlebitis of other sites Plan: -pt presented for left arm rash and swelling after having IV site in area while hospitalized a few days ago -UE doppler shows evidence of left cephalic superficial thrombophlebitis, no DVT -pt is a never smoker, not on OCPs, has no family hx of DVTs and is relatively active with no recent long travel -no systemic signs of infection -treat with warm compresses, elevation, and use of arm -can likely d/c IV abx this AM, will continue with PO clindamycin for 5 days total -focus on pain control with possible discharge this afternoon - Plan Plan: disposition: Pt stable and improving. Will focus on pain control today with increased use of arm. Continue to monitor with possible discharge this afternoon. <Rahul Gallegos - Last Filed: 04/28/17 10:37> Attending Addendum - Attending Addendum Date/Time: 04/28/17 1123 I personally evaluated the patient and discussed the management with Dr. Gallegos. I agree with the History, Examination, Assessment and Plan documented above with any addition or exceptions noted below. Patient doing well this morning. Continues to have pain and some swelling in the L elbow due to what has now been diagnosed as superficial thrombophlebitis. She is not a candidate for NSAID therapy due to recent GI bleeding. No evidence of cellulitis and elevated WBC is stable from her previous hospitalization. Continue warm compresses and attempt to improve pain control. If doing well this afternoon, can d/c home. <Andrei Abbasi - Last Filed: 04/28/17 11:25>
[2017-04-28] MEDS: Ferrous Sulfate 325 MG TAB PO SCH (08:34)
[2017-04-28] MEDS ORDERED: FLU VACC QS2017-18 36 mo. & older 0.5 ML SYRINGE IM ONE (09:00)
[2017-04-28] MEDS ORDERED: Citalopram 20 MG TAB PO SCH (09:00)
[2017-04-28] MEDS: Acetaminophen 500 MG TAB PO PRN ×2 (11:01→17:33)
[2017-04-28] MEDS ORDERED: traMADol HCl 50 MG TAB PO PRN (17:28)
[2017-04-29 05:37] LABS: #Basophils 0.1 thou/uL (0.0-0.2); #Eosinphils 0.3 thou/uL (0.0-0.7); #Lymphocytes 3.8 thou/uL (1.20-3.40); #Monocytes 0.9 thou/uL (0.11-0.59); #Neutrophils 4.9 thou/uL (1.40-6.50); %Basophils 0.6 % (0.0-1.0); %Eosinophils 3.1 % (0.0-10.0); %Lymphocytes 37.8 % (21.0-51.0); %Monocytes 9.2 % (0.0-10.0); %Neutrophils 49.3 % (42.0-75.0); Hemoglobin 9.6 g/dL (12.0-16.0); Mean Corpuscular HGB CONC 33.3 g/dL (32.0-36.0); Mean Corpuscular Hemoglobin 31.7 pg (27.0-31.0); Mean Corpuscular Volume 95.1 fl (81.0-99.0); Mean Platelet Volume 6.2 fL (7.4-10.4); Platelet Count 437 thou/uL (130-400); RBC Distribution Width 15.3 % (11.5-14.5); Red Blood Cell (RBC) Count 3.03 mill/uL (4.20-5.40)
[2017-04-29] MEDS: Clindamycin 150 MG CAP PO SCH ×2 (06:40→11:04)
--- NOTE | 2017-04-29 06:50 | PDOC.FM ---
- Subjective Subjective: Pt seen at bedside in NAD. JAX overnight. Pt notes she feels much better. Denies AMEZQUITA, CP, SOB, abd pain, NVD, tolerating PO well. - Objective MAR Reviewed: Yes Vital Signs & Weight: Vital Signs (12 hours) Temp Pulse Resp BP Pulse Ox 04/28/17 20:00 98.1 F 93 16 107/71 96 Weight Weight 58.967 kg Result Diagrams: 04/29/17 04:26 04/27/17 12:10 <Rahul Gallegos - Last Filed: 04/29/17 08:55> - Objective Vital Signs & Weight: Vital Signs (12 hours) Temp Pulse Resp BP Pulse Ox 04/29/17 08:00 97.9 F 74 18 97 04/29/17 07:49 97.9 F 74 18 93/55 L 97 Weight Weight 58.967 kg Result Diagrams: 04/29/17 04:26 04/27/17 12:10 <Andrei Abbasi - Last Filed: 04/29/17 12:32> Phys Exam - Physical Examination Constitutional: NAD HEENT: PERRLA, moist MMs Respiratory: no wheezing, clear to auscultation bilateral Cardiovascular: RRR, no significant murmur Gastrointestinal: soft, non-tender, positive bowel sounds Musculoskeletal: pulses present limited extension of left arm Neurological: moves all 4 limbs Psychiatric: A&O x 3 Skin: cap refill <2 seconds Deviation from normal: improved swelling of left arm at antecubital fossa <Rahul Gallegos - Last Filed: 04/29/17 08:55> Dx/Plan (1) Superficial thrombophlebitis Code(s): I80.9 - PHLEBITIS AND THROMBOPHLEBITIS OF UNSPECIFIED SITE Status: Acute QualifierTitle: Superficial thrombophlebitis-Involved body area: upper extremity Laterality: left Qualified Code(s): I80.8 - Phlebitis and thrombophlebitis of other sites Plan: -pt presented for left arm rash and swelling after having IV site in area while hospitalized a few days ago -UE doppler shows evidence of left cephalic superficial thrombophlebitis, no DVT -pt is a never smoker, not on OCPs, has no family hx of DVTs and is relatively active with no recent long travel -no systemic signs of infection, blood cultures no growth -treat with warm compresses, elevation, and use of arm -will continue with PO clindamycin for 5 days total with probiotic - Plan Plan: disposition: Pt stable, discharge today. <Rahul Gallegos - Last Filed: 04/29/17 08:55> Attending Addendum - Attending Addendum Date/Time: 04/29/17 1231 I personally evaluated the patient and discussed the management with Dr. Gallegos. I agree with the History, Examination, Assessment and Plan documented above with any addition or exceptions noted below. Patient doing well. Pain controlled and WBC normal. No evidence for infection. Discharge home today and will follow up in clinic with Dr. Gallegos. <Andrei Abbasi - Last Filed: 04/29/17 12:32>
[2017-04-29] MEDS: Ferrous Sulfate 325 MG TAB PO SCH (08:57)
[2017-04-29] MEDS: Acetaminophen 500 MG TAB PO PRN (11:05)
[2017-04-29 13:44] VITALS: BP 109/68; TEMP 98.1
--- NOTE | 2017-04-30 17:47 | DIS-2 ---
DATE OF ADMISSION: 04/27/2017 DATE OF DISCHARGE: 04/29/2017 RESIDENT: Dr. Rahul Gallegos. ADMITTING ATTENDING: Dr. Madeline Randle. DISCHARGE ATTENDING: Dr. Andrei Abbasi. CONSULTS: None. PROCEDURE: Left upper extremity vascular ultrasound showed a superficial vein thrombus with no DVT a nd soft tissue edema. PRIMARY DIAGNOSIS: Left upper extremity superficial thrombophlebitis. SECONDARY DIAGNOSES: 1. History of recent pyloric stenosis with ulcer. 2. Iron deficiency anemia. 3. Anxiety. 4. Attention deficit hyperactivity disorder. DISCHARGE MEDICATIONS: 1. Clindamycin 300 mg p.o. q.6 hours for 2 days. 2. Tramadol 50 mg p.o. at bedtime p.r.n. 3. Ferrous sulfate 325 mg p.o. daily. 4. Omeprazole 40 mg p.o. b.i.d. 5. Probiotic 1 capsule daily. 6. Adderall 10 mg p.o. b.i.d. HISTORY OF PRESENT ILLNESS AND HOSPITAL COURSE: The patient is a very pleasant 22-year-old female who was initially admitted due to left upper extremity swelling, erythema, warmth, and concer n for cellulitis. The patient, however, was noted to have recently been admitted and discharged with intravenous access on that left upper extremity and after resulting ultrasound as described above sh owed, the patient was diagnosed with superficial thrombophlebitis. The patient was treated with warm compresses, limb elevation, and stretching exercises. The patient made significant improvement in h er range of motion along with a decrease in the amount of erythema and swelling to the area. The patient was also noted to initially be tachycardic on her presentation; however, looking over her previous hospital stay as well, the patient was noted to have a baseline tachycardia likely secondar y to anxiety. This actually improved prior to discharge with the patient's heart rate remaining in t he 70s-80s. Regarding the patient's recent GI bleed, the patient's hemoglobin on the day of discharge was 9.6, wh ich was stable. The patient's hospital course otherwise uncomplicated. DISPOSITION: Stable. DISCHARGE INSTRUCTIONS: 1. Location: Home. 2. Diet: Regular diet. 3. Activity: As tolerated. 4. Followup: The patient was instructed to follow up and establish care with Dr. Rahul Gallegos at [facility] within the next 2 weeks. The patient was also instructed to keep appointment with Dr. Sravan Pino with Gastroenterology within the next few weeks for repeat EGD.
== END 2017-04-29 13:53 | disposition home or self-care (01) | DRG 316 ==
LOC: ERS 11:56 → T4-B 14:23
PROVIDERS: ADMIT Family Medicine; ATTEND Family Medicine
DX: T80.1XXA Vascular complications following infusion, transfusion and therapeutic injection, initial encounter (principal); I80.8 Phlebitis and thrombophlebitis of other sites; F41.9 Anxiety disorder, unspecified; F32.9 Major depressive disorder, single episode, unspecified; F90.9 Attention-deficit hyperactivity disorder, unspecified type; Z87.11 Personal history of peptic ulcer disease; Z88.1 Allergy status to other antibiotic agents; Z88.2 Allergy status to sulfonamides; Z79.899 Other long term (current) drug therapy; Y84.8 Other medical procedures as the cause of abnormal reaction of the patient, or of later complication, without mention of misadventure at the time of the procedure
CPT/HCPCS: 36415; 80053; 83605; 85025; 85610; 85730; 87040; 96365; 96366; 96375; A4216; J2270; J3370